=== PATIENT | male | born 1935 | race Caucasian/White ===

== ENCOUNTER 2017-02-20 09:33 | Emergency (ER) | payer OTHER ==
--- NOTE | ~2017-02-20 | CR72 ---
[facility] A Service of [facility] & [facility] RADIOLOGY TEXT RESULTS PATIENT: ALEKS BARBOSA LOCATION: [facility] : 37 UNIT #: [id number] AGE: [address]: Nila Medley MD SEX: M ORDER DR: [id number] [facility] [address] [place], [place] [address] [id number] E MR#: [id number] Acc #: [id number] NAME: ALEKS BARBOSA : 1935 SEX: M STUDY DATE/TIME: 02/20/2017 10:55 UNIT: [facility] ROOM: STUDY DESCRIPTION: CR Chest Single View Portable Attending Physician: Nila Medley M.D. Ordering Physician: Nila Medley M.D. Primary Care Physician: Wisam Azul M.D. MEDICAL IMAGING REPORT This report is preliminary unless electronic signature is present EXAM Portable chest x-ray, 02/20/2017 HISTORY Dizziness, unable to urinate. Constipation. Dizzy, abdomen pain 3 days. Prior history of prostate cancer. FINDINGS AP radiograph of the chest presented. Image obtained in lordotic projection. Most recent comparison 06/08/2008. Degenerative changes in the spine. No acute-appearing bony abnormality. The heart is normal in size. Mediastinal contours within normal limits. The lungs are hyperinflated as on prior study suggesting underlying chronic airway disease. There is no evidence of pneumonia or pulmonary edema and no pleural effusion or pneumothorax. Questionable 2.2 cm nodular density right mid lung zone superimposed over the posterior right eighth rib. This is probably a superimposition artifact related to normal vascular structures and anterior right fourth rib but true pulmonary nodule is not excluded on basis of this examination. It could be further evaluated with formal PA and lateral radiographs of the chest. If the abnormality persists on the repeat PA and lateral radiographs of the chest, then CT examination would be warranted to assess for true pulmonary nodule. No other nodular density suggested. Dictated by... Ignacio Foster M.D. THIS IS AN ELECTRONICALLY VERIFIED REPORT Ignacio Foster M.D. at 02/21/2017 11:32 PM CRYSTAL/kenya TD: 02/20/2017 14:20 [facility] [email or web address] A Service of [facility] & [facility] RADIOLOGY TEXT RESULTS PATIENT: ALEKS BARBOSA LOCATION: [facility] #: [id number] : 37 UNIT #: [id number] AGE: [address]: Nila Medley MD SEX: M ORDER DR: JOB #: [id number] MEDICAL IMAGING REPORT Page 1 of 1 COPY
--- NOTE | ~2017-02-20 | MR122 ---
[facility] A Service of [facility] RADIOLOGY TEXT RESULTS PATIENT: ALEKS BARBOSA LOCATION: [facility] : 37 UNIT #: [id number] AGE: [address]: Nila Medley MD SEX: M ORDER DR: [id number] [facility] [address] [place], [place] [address] [id number] E MR#: [id number] Acc #: [id number] NAME: ALEKS BARBOSA : 1935 SEX: M STUDY DATE/TIME: 02/20/2017 15:40 UNIT: [facility] ROOM: STUDY DESCRIPTION: MR MRA Head Wo Contrast Attending Physician: Nila Medley M.D. Ordering Physician: Nila Medley M.D. Primary Care Physician: Wisam Azul M.D. MRI CENTER REPORT This report is preliminary unless electronic signature is present. EXAM MR angiogram intracranial 02/20/2017 HISTORY Dizziness, lightheadedness off balance patient fell 2 weeks ago has left leg weakness. No cancer history. COMMENTS MR angiography performed cheesh-na of Farah vasculature. COMPARISON STUDIES There is no previous. FINDINGS The distal left vertebral artery supplies the basilar. The basilar is widely patent. The distal right vertebral artery appears to terminate in a PICA vessel and is a hypoplastic structure. There is no intracranial vascular cutoff suspected. The more distal left posterior cerebral artery distribution flow is less well seen probably due to technical factors. The right A1 vessel is mildly hypoplastic. There is probably an anterior communicator present and the left A1 vessel is of normal caliber. No intracranial vascular cutoff is suspected. There is an infundibulum origin of moderate size right posterior communicator. Smaller left posterior communicator is seen also likely with a small infundibulum at its origin. No intracranial aneurysm is suspected allowing for the technical limitation of MR angiography in general for evaluation for small aneurysm. No focal central stenosis is appreciated. IMPRESSION Vascular variations discussed above. No intracranial vascular cutoff. No focal central stenosis. [facility] A Service of [facility] RADIOLOGY TEXT RESULTS PATIENT: ALEKS BARBOSA LOCATION: [facility] : 37 UNIT #: [id number] AGE: [address]: Nila Medley MD SEX: M ORDER DR: STAT * RESULT Dictated by... Bernarda Horton M.D. THIS IS AN ELECTRONICALLY VERIFIED REPORT Bernarda Horton M.D. at 02/20/2017 5:11 PM Marshall TD: 02/20/2017 16:58 JOB #: [id number] MRI CENTER REPORT Page 1 of 1 COPY
--- NOTE | ~2017-02-20 | CT4 ---
[facility] A Service of [facility] & [facility] RADIOLOGY TEXT RESULTS PATIENT: ALEKS BARBOSA LOCATION: [facility] : 37 UNIT #: [id number] AGE: [address]: Nila Medley MD SEX: M ORDER DR: [id number] [facility] [address] [place], [place] [address] [id number] E MR#: [id number] Acc #: [id number] NAME: ALEKS BARBOSA. : 1935 SEX: M STUDY DATE/TIME: 02/20/2017 1305 UNIT: [facility] ROOM: STUDY DESCRIPTION: CT Abd and Pelv Wo Cont Attending Physician: Nila Medley M.D. Ordering Physician: Nila Medley M.D. Primary Care Physician: Wisam Azul M.D. MEDICAL IMAGING REPORT This report is preliminary unless electronic signature is present EXAM CT abdomen and pelvis without contrast 02/20/2017 1305 hours. HISTORY 81-year-old man complaining of dizziness, lightheadedness, abdominal pain for 2 years with constipation. Left leg weakness. Loss of balance. History of prostate cancer.. COMPARISON CT abdomen 06/06/2010 TECHNIQUE Helical noncontrasted images were obtained from the lung bases through the pubic symphysis. Oral contrast only was administered. Sagittal and coronal reconstructions were performed. Total exam DLP 988 mGy-cm. This CT exam was performed with one or more of the following radiation dose reduction techniques: automatic exposure control, adjustment of mA and/or kV according to patient size, and iterative reconstruction. FINDINGS Images through the lung bases demonstrate reticulonodular change at the right posterior lung base posterior to the dome of the diaphragm. Within this area, there is a 7-mm nodule and an additional similar sized nodule. These changes, not seen on 03/06/2010, are indeterminate. A pulmonary tumor or metastasis cannot be excluded. Consider followup chest CT. Images without contrast throughout the abdomen and pelvis demonstrate a normal appearance to the liver, spleen, pancreas, gallbladder, bile ducts and adrenal glands. The right kidney demonstrates a 1.5 x 1.5 cm low-density lesion in the STS. [facility] A Service of [facility] & [facility] RADIOLOGY TEXT RESULTS PATIENT: ALEKS BARBOSA LOCATION: [facility] : 37 UNIT #: [id number] AGE: [address]: Nila Medley MD SEX: M ORDER DR: anterior mid kidney measuring -4 Hounsfield units likely a cyst. The left kidney demonstrates no change in the small low-density cortical area in the posterior mid kidney which is likely a cyst. There is an exophytic lesion from the anteromedial lower pole left kidney measuring 4.4 x 3.4 cm and only 8 Hounsfield units, most likely a cyst. This has increased from 1.1 cm in size on 06/06/2010. There is a retroaortic left renal vein. There is atherosclerotic change of the abdominal aorta without aneurysm. There is no retroperitoneal adenopathy. The patient does have multiple small lymph nodes in the central mesenteric fat, some of which are enlarged. These are more numerous and increased in size relative to the appearance on 06/06/2010 and are, therefore, viewed with some concern. Example node measures 2.6 x 1.4 cm. Findings could be reactive; however, metastatic disease or lymphoproliferative disorder should be excluded. There is a normal appearance to the stomach and small bowel. The unopacified colon appears normal. CT pelvis demonstrates a distended bladder without wall thickening. There is no pelvic adenopathy. No inguinal adenopathy. The prostate is surgically absent. Bone window images demonstrate a normal appearance to the lumbar spine and pelvis. Note is made of a mottled appearance to the marrow of the left femoral head greater than right. This could be a manifestation of underlying osteopenia; however, the changes could be associated with early avascular necrosis. IMPRESSION 1. There is reticulonodular change at the right lung base, new from the 2010 CT, with 2 small approximately 7-mm noncalcified nodules present that were not present previously. These could represent benign postinflammatory change; however, metastasis cannot be excluded. Consider followup chest CT. 2. There are bilateral renal cortical lesions most suggestive of cysts based on density measurements on this noncontrasted study. There are no renal or ureteral stones. 3. There are multiple mildly enlarged lymph nodes in the central mesenteric fat clearly increased from 06/06/2010. Example node measures 2.6 x 1.4 cm. While these could represent reactive nodes, metastatic disease or lymphoproliferative disorder should be considered. 4. Prostatectomy change with no lymphadenopathy or tumor mass. The bladder is mildly distended, but no bladder wall thickening is seen. 5. There is a slightly mottled appearance to the bone in the femoral heads, left greater than right. This could represent reactive change from arthritis. However, consider avascular necrosis, given the STS. [facility] A Service of [facility] RADIOLOGY TEXT RESULTS PATIENT: ALEKS BARBOSA [id number] : 37 UNIT #: [id number] AGE: [address]: Nila Medley MD SEX: M ORDER DR: patient's symptoms on the left. This could be further evaluated with hip MRI. STAT * RESULT Dictated by... Corinne Fernandez M.D. THIS IS AN ELECTRONICALLY VERIFIED REPORT Corinne Fernandez M.D. at 02/21/2017 6:54 AM Bethanie TD: 02/20/2017 13:53 JOB #: [id number] MEDICAL IMAGING REPORT Page 1 of 1 COPY
--- NOTE | ~2017-02-20 | CT71 ---
[facility] A Service of [facility] RADIOLOGY TEXT RESULTS PATIENT: ALEKS BARBOSA LOCATION: [facility] : 37 UNIT #: [id number] AGE: [address]: Nila Medley MD SEX: M ORDER DR: [id number] [facility] [address] [place], [place] [address] [id number] E MR#: [id number] [facility] #: [id number] NAME: ALEKS BARBOSA : 1935 SEX: M STUDY DATE/TIME: 02/20/2017 13:02 UNIT: [facility] ROOM: STUDY DESCRIPTION: CT Head Wo Contrast Attending Physician: Nila Medley M.D. Ordering Physician: Nila Medley M.D. Primary Care Physician: Wisam Azul M.D. MEDICAL IMAGING REPORT This report is preliminary unless electronic signature is present EXAM CT head. DATE OF EXAM 02/20/2017 HISTORY Dizziness, lightheadedness. Left leg weakness. Abdomen pain 2 years. Constipation. Off balance. Symptoms of dizziness, lightheadedness, leg weakness, off balance for a couple of days per cardiac cath lab radiology technologist. TECHNIQUE CT head performed skull base through vertex without intravenous contrast. This CT exam was performed with one or more of the following radiation dose reduction techniques: automatic exposure control, adjustment of mA and/or kV according to patient size, and iterative reconstruction. COMPARISON No prior study for comparison. FINDINGS Brainstem unremarkable. Cerebellum and cerebral hemispheres show normal zapata matter - white matter differentiation. No hemorrhage. No evidence of acute cortical ischemia. Periventricular and deep white matter tract probable sequelae of chronic microvascular ischemia. Midline structures are nondisplaced. Basal ganglia are intact. Ventricles, cisterns, sulci show mild generalized enlargement consistent with mild generalized atrophy. No intra or extraaxial mass effect or abnormal intracranial fluid collection. Cavernous, carotid and distal vertebral arterial calcifications. Intraorbital soft tissues remarkable. Visualized paranasal sinuses and mastoid air cells are clear. No fracture. IMPRESSION [facility] A Service of [facility] RADIOLOGY TEXT RESULTS PATIENT: ALEKS BARBOSA LOCATION: [facility] : 37 UNIT #: [id number] AGE: [address]: Nila Medley MD SEX: M ORDER DR: 1. No clearly acute abnormalities seen in the head. If the patient has ongoing neurologic symptoms, follow up imaging, preferably with MRI if the patient is a candidate, would be recommended. 2. Mild generalized atrophy. 3. Periventricular and deep white matter tract probable sequelae of chronic microvascular ischemia. 4. Cavernous carotid and distal vertebral arterial calcifications. Dictated by... Ignacio Foster M.D. THIS IS AN ELECTRONICALLY VERIFIED REPORT Ignacio Foster M.D. at 02/21/2017 11:32 PM CRYSTAL/emani TD: 02/20/2017 18:15 JOB #: [id number] MEDICAL IMAGING REPORT Page 1 of 1 COPY
--- NOTE | ~2017-02-20 | EKG ---
PATIENT: ALEKS BARBOSA UNIT #: [id number] Ventricular Rate: 71 BPM Atrial Rate: 71 BPM P-R Interval: 160 ms QRS Duration: 100 ms Q-T Interval: 396 ms QTC Calculation(Bezet): 430 ms P Huntington: 77 degrees Calculated R Huntington: 49 degrees Calculated T Huntington: 50 degrees Diagnosis Line: Normal sinus rhythm Diagnosis Line: Minimal voltage criteria for LVH, may be normal Diagnosis Line: variant Diagnosis Line: Otherwise normal ECG Diagnosis Line: No previous ECGs available Diagnosis Line: Confirmed by LASHNODA MANLEY MD ([id number]) on 02/21/2017 Diagnosis Line: 8:01:24 PM INTERPRETING MD: VINEET EDWARDS
--- NOTE | ~2017-02-20 | MR134 ---
[facility] A Service of [facility] RADIOLOGY TEXT RESULTS PATIENT: ALEKS BARBOSA LOCATION: [facility] : 37 UNIT #: [id number] AGE: [address]: Nila Medley MD SEX: M ORDER DR: [id number] [facility] [address] [place], [place] [address] [id number] E MR#: [id number] Acc #: [id number] NAME: ALEKS BARBOSA : 1935 SEX: M STUDY DATE/TIME: 02/20/2017 16:05 UNIT: [facility] ROOM: STUDY DESCRIPTION: MR MRA Neck Wo Contrast Attending Physician: Nila Medley M.D. Ordering Physician: Nila Medley M.D. Primary Care Physician: Wisam Azul M.D. MRI CENTER REPORT This report is preliminary unless electronic signature is present. EXAM MR angiogram of the neck. HISTORY Neurologic deficit. Complains of dizziness, off balance, lightheadedness and left leg weakness, falling 2 weeks ago. COMMENT MR angiography performed of neck vessels without contrast. See separate MR angiogram intracranial. FINDINGS By NASCET criteria, there is essentially 0% stenosis at the left carotid bifurcation. On the right side, there is probably mild disease at the bulb but no hemodynamically-significant narrowing by NASCET criteria suspected. The left vertebral artery is patent and dominant. The right vertebral artery is hypoplastic. Origin not well studied on noncontrast examination. I believe the right vertebral artery largely terminates in a PICA vessel intracranially. IMPRESSION 1. By NASCET criteria there does not appear to be hemodynamically-significant narrowing in either carotid bifurcation. The left vertebral artery is dominant. The right is relatively hypoplastic and probably terminates in the PICA. Dictated by... Bernarda Horton M.D. THIS IS AN ELECTRONICALLY VERIFIED REPORT Bernarda Horton M.D. at 02/21/2017 8:25 AM SAC/jt [facility] A Service of [facility] RADIOLOGY TEXT RESULTS PATIENT: ALEKS BARBOSA LOCATION: [facility] : 37 UNIT #: [id number] AGE: [address]: Nila Medley MD SEX: M ORDER DR: TD: 02/20/2017 23:59 JOB #: [id number] MRI CENTER REPORT Page 1 of 1 COPY
--- NOTE | ~2017-02-20 | MR18 ---
[facility] A Service of [facility] RADIOLOGY TEXT RESULTS PATIENT: ALEKS BARBOSA LOCATION: [facility] : 37 UNIT #: [id number] AGE: [address]: Nila Medley MD SEX: M ORDER DR: [id number] [facility] [address] [place], [place] [address] [id number] E MR#: [id number] Acc #: [id number] NAME: ALEKS BARBOSA : 1935 SEX: M STUDY DATE/TIME: 02/20/2017 15:48 UNIT: [facility] ROOM: STUDY DESCRIPTION: MR Brain Wo Contrast Attending Physician: Nila Medley M.D. Ordering Physician: Nila Medley M.D. Primary Care Physician: Wisam Azul M.D. MRI CENTER REPORT This report is preliminary unless electronic signature is present. EXAM Brain MRI without. HISTORY Dizziness, off balance, lightheaded, left leg weakness. Patient fell 2 weeks ago but did not hit head. Has had problems with urination but he has prostate problems. No history of cancer. COMMENT MRI of the brain was performed without contrast using routine 1.5T imaging technique. COMPARISON There is a head CT from earlier today for comparison. FINDINGS There is no evidence for a recent ischemic insult on the diffusion series. There is no Chiari-I malformation. There is generalized atrophy essentially age-appropriate. No extraaxial fluid collection. There is no MRI evidence for intracranial hemorrhage. No intracranial mass effect. Moderate white matter disease is seen nonspecific likely due to small vessel disease. Major intracranial flow voids maintained. Mastoid air cells clear. Minor paranasal sinus mucosal thickening. Cataract surgery bilaterally. Tiny lacunes and/or prominent perivascular spaces in the bilateral basal ganglia. IMPRESSION 1. No evidence for a recent ischemic insult on the diffusion series. 2. Moderate probable sequelae of small vessel disease. Dictated by... [facility] A Service of [facility] RADIOLOGY TEXT RESULTS PATIENT: ALEKS BARBOSA LOCATION: [facility] : 37 UNIT #: [id number] AGE: [address]: Nila Medley MD SEX: M ORDER DR: Bernarda Horton M.D. THIS IS AN ELECTRONICALLY VERIFIED REPORT Bernarda Horton M.D. at 02/21/2017 8:24 AM CHI/emani TD: 02/20/2017 23:57 JOB #: [id number] MRI CENTER REPORT Page 1 of 1 COPY
[~2017-02-20 09:33] MED LIST: LORTAB 7.5-5001 TAB PO; OMEPRAZOLE; VICODIN 5/1 TAB 5/50 PO
[2017-02-20 11:16] LABS: BASOPHIL% 0.2 % (0-2.5); EOSINOPHIL# 0.1 X10e3 (0-0.7); HEMATOCRIT 40.2 % (38.0-50.0); HEMOGLOBIN 13.4 gm/dL (13.0-16.0); LYMPHOCYTE# 2.5 X10e3 (1.0-3.5); LYMPHOCYTE% 35.4 % (17.0-45.0); MEAN CELL VOLUME 92.8 FL (83-96); MEAN CORPUSCULAR HEMOGLOBIN 30.9 PG (28-34); MEAN CORPUSCULAR HGB CONC 33.3 g/dL (30-36); MEAN PLATELET VOLUME 7.6 FL (6.5-11.5); MONOCYTE# 0.6 X10e3 (0-1.0); MONOCYTE% 8.5 % (3.0-12.0); NEUTROPHIL# 3.9 X10e3 (1.5-7.1); NEUTROPHIL% 54.9 % (40-75); PLATELET COUNT 214 X10e3 (140-420); RED BLOOD COUNT 4.33 X10e (3.90-5.60); RED CELL DISTRIBUTION WIDTH 13.4 % (11.0-15.5); WHITE BLOOD COUNT 7.1 X10e3 (4.0-10.5)
[2017-02-20 11:20] LABS: POC - CKMB <1.0 ng/mL (0.0-7.9); POC - TROPONIN <0.05 ng/mL (<=0.05)
[2017-02-20 11:21] LABS: DIFF IND NO
[2017-02-20 11:39] LABS: URINE SOURCE CLEAN CATCH
[2017-02-20 11:48] LABS: URINE APPEARANCE CLEAR; URINE BILIRUBIN NEG (NEG); URINE BLOOD NEG (NEG); URINE COLOR YELLOW; URINE GLUCOSE NEG (NEG); URINE KETONE NEG (NEG); URINE LEUKOCYTE ESTERASE NEG (NEG); URINE NITRATE NEG (NEG); URINE PH 7.5 (5-8); URINE PROTEIN NEG (NEG); URINE SPECIFIC GRAVITY 1.009 (1.003-1.035)
[2017-02-20 11:49] LABS: CULTURE INDICATED? NO
[2017-02-20 11:50] LABS: ALBUMIN SERUM 4.3 g/dL (3.5-5.0); BILIRUBIN, DIRECT 0.2 mg/dL (0.0-0.2); BILIRUBIN,INDIRECT 0.3 mg/dL (0.0-0.9); BILIRUBIN,TOTAL 0.5 mg/dL (0.2-2.0); BUN/CREATININE RATIO 9.23; CREATININE SERUM 1.3 mg/dL (0.6-1.4); GLOM FILT RATE Estimated 51.9 mL/min (>60); POTASSIUM 3.5 mmol/L (3.5-5.1); PROTEIN TOTAL SERUM 7.5 g/dL (6.0-8.3)
[2017-02-20 14:03] LABS: POC - CKMB <1.0 ng/mL (0.0-7.9); POC - TROPONIN <0.05 ng/mL (<=0.05)
[2017-02-20] MEDS ORDERED: LIPITOR20 MG PO (15:05)
[2017-02-20] MEDS ORDERED: OMEPRAZOLE40 M1 PO (15:05)
[2017-02-20] MEDS ORDERED: FENOFIBRATE160 MG PO (15:05)
[2017-02-20] MEDS ORDERED: LINZESS145 MCG PO (15:06)
[2017-02-20] MEDS ORDERED: PATIENT'S PHARMACY (15:08)
== END 2017-02-20 15:00 | disposition home or self-care (01) ==
LOC: CED 09:33
PROVIDERS: Emergency Medicine
DX: K59.00 Constipation, unspecified (principal); R59.0 Localized enlarged lymph nodes; F03.90 Unspecified dementia, unspecified severity, without behavioral disturbance, psychotic disturbance, mood disturbance, and anxiety; Z98.890 Other specified postprocedural states
CPT/HCPCS: 36415; 70450; 70544; 70547; 70551; 71010; 74176; 80048; 80076; 81003; 82553; 83690; 83880; 84443; 84484; 85025; 85610; 85730; 93005; 99284

== ENCOUNTER → 2017-04-17 | Outpatient (CLI) | payer OTHER ==
[~2017-04-17] MED LIST changes: +FENOFIBRATE160 MG PO; +LINZESS145 MCG PO; +LIPITOR20 MG PO; +OMEPRAZOLE40 M1 PO; +PATIENT'S PHARMACY
--- NOTE | ~2017-04-17 | CT57 ---
[facility] A Service of [facility] & [facility] RADIOLOGY TEXT RESULTS PATIENT: ALEKS JOE LOCATION: [facility] : 37 UNIT #: [id number] AGE: [address]: Ron Baptiste MD SEX: M ORDER DR: [id number] [place] [id number] [facility] [place], [place] [address] [id number] O MR#: [id number] Acc #: [id number] NAME: ALEKS JOE : 1935 SEX: M STUDY DATE/TIME: 04/17/2017 10:14 UNIT: [facility] ROOM: STUDY DESCRIPTION: CT Chest Wo Cont Attending Physician: Ron Baptiste M.D. Referring Physician: Ron Baptiste M.D. Ordering Physician: Ron Baptiste M.D. Primary Care Physician: Wisam Azul M.D. MEDICAL IMAGING REPORT This report is preliminary unless electronic signature is present EXAM CT of the thorax INDICATION Mr. Joe is a 81-year-old man who was incidentally noted to have a right lower lobe pulmonary nodule on CT of the abdomen and pelvis performed on February 20, 2017. He subsequently underwent a PET scan which showed that this area was very hypermetabolic with a max SUV of 10.53. He was referred for percutaneous biopsy. PROCEDURE This CT examination was performed with one or more of the following radiation dose reduction techniques: automatic exposure control, adjustment of mA and/or kV according to patient size, and iterative reconstruction. The risks, benefits, and alternatives to the procedure were explained to the patient, and signed, informed consent was obtained. He was placed in the right lateral decubitus position on the CT scanner gantry. A preliminary CT scan was performed through the region of interest. The previously noted nodule within the right lower lobe now measures about 2.0 x 1.4 cm. In this same area, it previously measured 2.8 x 1.9 cm. Just inferior to this, it measures 1.7 x 1.4 cm, previously 3.1 x 2.4 cm. There does appear to be some increasing central cavitation. Given substantial interval decrease in size, this is felt to be benign infectious or inflammatory process despite the degree of uptake on PET. Procedure was subsequently terminated. I would suggest however repeat CT in 2-3 months to demonstrate continuing evolution or resolution. Patient did receive moderate sedation consistent of 1 mg of Versed and 26 mcg of fentanyl. I supervised the IVR nurse and monitored the patient's vital signs for a total of 5 minutes of face to face time. [facility] A Service of [facility] RADIOLOGY TEXT RESULTS PATIENT: ALEKS OJE LOCATION: [facility] : 37 UNIT #: [id number] AGE: [address]: Ron Baptiste MD SEX: M ORDER DR: IMPRESSION Right lower lobe pulmonary nodule has significantly decreased in size when compared to prior examinations. Interval decrease in size would suggest that this is a benign process despite the FDG accumulation on recent PET. Procedure was terminates. Short-term followup CT in 2-3 months is suggested to document continuing involution/resolution. Dictated by... Kaur Moreno M.D. THIS IS AN ELECTRONICALLY VERIFIED REPORT Kaur Moreno M.D. at 04/18/2017 5:13 PM JOSE A/manny TD: 04/18/2017 10:05 JOB #: [id number] MEDICAL IMAGING REPORT Page 1 of 1 COPY
[2017-04-17 08:07] LABS: HEMATOCRIT 40.2 % (38.0-50.0); HEMOGLOBIN 13.4 gm/dL (13.0-16.0); MEAN CELL VOLUME 92.2 FL (83-96); MEAN CORPUSCULAR HEMOGLOBIN 30.8 PG (28-34); MEAN CORPUSCULAR HGB CONC 33.4 g/dL (30-36); MEAN PLATELET VOLUME 7.8 FL (6.5-11.5); RED BLOOD COUNT 4.36 X10e (3.90-5.60); WHITE BLOOD COUNT 8.5 X10e3 (4.0-10.5)
[2017-04-17 08:21] LABS: INR 1.1; PARTIAL THROMBOPLASTIN TIME 24.7 SECONDS (23.5-31.3); PROTHROMBIN TIME (PATIENT) 11.7 SECONDS (10.0-11.7)
== END | disposition home or self-care (01) ==
LOC: CIVR 07:40
PROVIDERS: Internal Medicine Pulmonary Disease
DX: R91.1 Solitary pulmonary nodule (principal); J43.9 Emphysema, unspecified
CPT/HCPCS: 36415; 71250; 76140; 85027; 85610; 85730; J2250; J3010